=== PATIENT | male | born 1955 ===

== ENCOUNTER 2018-04-12 21:23 | Inpatient (IN) | payer MEDICAID ==
--- NOTE | 2018-04-12 21:53 | C.PDOC ---
History Of Present Illness 62 year old male with PMHx of DM presents to the ED c/o left sided weakness that started yesterday night. Patient reports last night he noticed left sided weakness difficulty with his gait and decreased sensation to his left upper and lower extremities. Patient thought his symptoms will eventually get better so he did not seek immediate medial attention. This morning after waking up patient almost fell out of bed withy persistent left sided weakness. Patient did not seek medical attention until 1 hour [employer] when his son got home. Patient denies headache, injury, fall, trauma, visual changes, slurred speech, no prior Hx of CVA. Time Seen by Provider: 04/12/18 21:48 Chief Complaint (Nursing): Weakness/Neurological Deficit History Per: Patient History/Exam Limitations: no limitations Onset/Duration Of Symptoms: Days Current Symptoms Are (Timing): Still Present Number Of Syncopal Episodes: 1 Associated Symptoms Preceding Syncopal Episode: No Predromal Symptoms (Sudden Onset) Seizure Or Post-ictal Symptoms: None Fall Associated With With Symptoms: No Recent travel outside of the [place]: No Additional History Per: Patient - Symptoms Of CVA Character Of Deficits: Left: Weakness, Arm: Weakness Recent Aspirin Use: No Current Coumadin Use?: No Recent Head Trauma: No Past Medical History Reviewed: Historical Data, Nursing Documentation, Vital Signs Vital Signs: Last Vital Signs Temp 98.1 F 04/13/18 01:46 Pulse 68 04/13/18 01:46 Resp 16 04/13/18 01:46 BP 131/54 L 04/13/18 01:46 Pulse Ox 96 04/13/18 01:46 - Medical History PMH: Diabetes, Graves' Disease Surgical History: No Surg Hx Family History: States: Unknown Family Hx - Social History Hx Alcohol Use: No Hx Substance Use: No - Immunization History Hx Tetanus Toxoid Vaccination: No Hx Influenza Vaccination: No Hx Pneumococcal Vaccination: No Review Of Systems Constitutional: Negative for: Fever, Chills Cardiovascular: Negative for: Chest Pain Respiratory: Negative for: Shortness of Breath Gastrointestinal: Negative for: Abdominal Pain Skin: Negative for: Rash Neurological: Positive for: Weakness, Numbness. Negative for: Headache, Dizziness Physical Exam - Physical Exam Appears: Non-toxic, No Acute Distress Skin: Normal Color, Warm, Dry Head: Atraumatic, Normacephalic Eye(s): bilateral: Normal Inspection Nose: No Discharge Oral Mucosa: Moist Neck: Normal ROM, Supple Chest: Symmetrical Cardiovascular: Rhythm Regular, No Murmur Respiratory: Normal Breath Sounds, No Rales, No Rhonchi, No Wheezing Gastrointestinal/Abdominal: Soft, No Tenderness, No Guarding, No Rebound Extremity: No Tenderness, Capillary Refill (< 2 seconds), No Swelling, Other ( left upper and lower extremities wekaness) Pulses: Left Dorsalis Pedis: Normal, Right Dorsalis Pedis: Normal Neurological/Psych: Oriented x3, Normal Speech, Normal Cranial Nerves, Normal Motor (4/5 strength left upper extremity, 4/5 left lower extremity), No Normal Sensation (decreased sesnation left upper and lower extremities), Other ( pronator drift left upper extremity.) Gait: Other (ataxic, tetters on the left sided) ED Course And Treatment - Laboratory Results Result Diagrams: 04/12/18 22:10 04/12/18 22:10 ECG: Interpreted By Me, Viewed By Me ECG Rhythm: Sinus Rhythm ECG Interpretation: Normal Interpretation Of ECG: No ectopy, so ST/T wave abnormalities Rate From EC (BPM) O2 Sat by Pulse Oximetry: 98 (ON RA) Pulse Ox Interpretation: Normal - CT Scan/US CT head Other Rad Studies (CT/US): Read By Radiologist, Radiology Report Reviewed CT/US Interpretation: FINDINGS: Brain: Mild to moderate chronic white matter disease, likely microangiopathic. Age-indeterminate. infarct within the right miles radiata, measures approximately 10 mm. No hemorrhage. Ventricles: No hydrocephalus. Caval septum pellucidum, normal variant. Bones/joints: Unremarkable. No acute fracture. Soft tissues: Unremarkable. Sinuses: Unremarkable as visualized. No acute sinusitis. Mastoid air cells: Unremarkable as visualized. No mastoid effusion. IMPRESSION: Age- indeterminate infarct within the right miles radiata, measures approximately 10 mm. No major vascular catheter infarct, hemorrhage or mass effect. Clinical correlation and followup is recommended as clinically warranted. Thank you for allowing us to participate in the care of your patient. Dictated and Authenticated by: Angie Arizmendi MD. 04/12/2018 11:01 PM Eastern Time ([place] & [place]) NIHSS Stroke Scale 2 - Date/Time Evaluation Performed Date Performed: 04/12/18 When Was NIHSS Performed: 24 hours post onset S/S - How Severe is the Stroke Level of Consciousness: 0=Alert LOC to Questions: 0=Both comments correct LOC to commands: 0=Obeys both correctly Best Gaze: 0=Normal Visual: 0=No visual loss Facial: 0=Normal Motor Arm - Left: 1=Drift noted before 10 sec Motor Arm - Right: 0=No drift Motor Leg - Left: 1=Drift before 5 sec Motor Leg - Right: 0=No drift Limb Ataxia: 2=Present both Sensory: 1=Mild to moderate loss Best Language: 0=No aphasia Dysarthia: 0=Normal articulation Extinction & Inattention (Neglect): 0=Normal, no object Score: 5 Medical Decision Making Medical Decision Making: Impression: left sided weakness Plan: * CT head * Labs * EKG * CXR * IV fluids 22:30 - Spoke with Dr. Alfaro (neurologist [facility]) who recommends that if CT shows no bleed give patient aspirin and clavix and admit to telemetry Disposition - Disposition Disposition: HOSPITALIZED Disposition Time: 05:29 Condition: GOOD - Clinical Impression Clinical Impression: Stroke determined by clinical assessment - Scribe Statement The provider has reviewed the documentation as recorded by the Scribe Dejon Rios All medical record entries made by the Scribe were at my direction and personally dictated by me. I have reviewed the chart and agree that the record accurately reflects my personal performance of the history, physical exam, medical decision making, and the department course for this patient. I have also personally directed, reviewed, and agree with the discharge instructions and disposition.
--- NOTE | 2018-04-12 21:55 | C.PDOC ---
Time Seen by Provider: 04/12/18 21:48 Chief Complaint (Nursing): Weakness/Neurological Deficit Past Medical History Vital Signs: Last Vital Signs Temp 98.5 F 04/12/18 21:42 Pulse 84 04/12/18 21:42 Resp 28 H 04/12/18 21:42 BP 163/90 H 04/12/18 21:42 Pulse Ox 98 04/12/18 21:42 - Medical History PMH: Graves' Disease - Social History Hx Alcohol Use: No Hx Substance Use: No - Immunization History Hx Tetanus Toxoid Vaccination: No Hx Influenza Vaccination: No Hx Pneumococcal Vaccination: No ED Course And Treatment O2 Sat by Pulse Oximetry: 98 Disposition - Disposition Forms: [employer] (E[place]ian)
[2018-04-12 22:16] LABS: BASO # 0.1 K/uL (0.0-0.2); BASO % 0.8 % (0.0-2.0); EOS # 0.3 K/uL (0.0-0.7); HEMOGLOBIN 13.2 g/dL (12.0-18.0); LYMPH # 4.3 K/uL (1.0-4.3); MEAN CELL VOLUME 83.8 fL (80.0-94.0); MEAN CORPUSCULAR HEMOGLOBIN 27.8 pg (27.0-31.0); MEAN CORPUSCULAR HGB CONC 33.2 g/dL (33.0-37.0); MEAN PLATELET VOLUME 8.3 fL (7.2-11.7); MONO # 1.2 K/uL (0.0-0.8); MONO % 8.4 % (0.0-10.0); NEUT % 57.8 % (50.0-75.0); RBC 4.74 Mil/uL (4.40-5.90); RED CELL DISTRIBUTION WIDTH 14.2 % (11.5-14.5); WHITE BLOOD COUNT 13.9 K/uL (4.8-10.8)
[2018-04-12 22:24] LABS: INR 1.1; PROTHROMBIN TIME 11.9 SECONDS (9.7-12.2)
[2018-04-12] MEDS ORDERED: Sodium Chloride 0.9% 1,000 ML ONE (22:27)
[2018-04-12] MEDS: Sodium Chloride 0.9% 1,000 ML IV SCH (22:28)
[2018-04-12 22:29] LABS: ALB/GLOB RATIO 1.1 (1.0-2.1); ALBUMIN 3.8 g/dL (3.5-5.0); ALT/SGPT 26 U/L (21-72); AST/SGOT 17 U/L (17-59); BLOOD UREA NITROGEN 13 mg/dL (9-20); CALCIUM 9.6 mg/dl (8.6-10.4); GFR AFRICAN-AMERICAN > 60; GFR NON-AFRICAN AMERICAN > 60; HDL CHOLESTEROL 25 mg/dL (30-70)
[2018-04-12 22:40] LABS: LDL CHOLESTEROL 150 mg/dL (0-129)
[2018-04-12] MEDS ORDERED: Iodixanol 320 MG/ML 100 ML BOTTLE IV ONE (22:43)
--- NOTE | 2018-04-12 23:38 | CP.PCM.HP ---
<Elena Mckinney - Last Filed: 04/13/18 02:46> History of Present Illness - History of Present Illness History of Present Illness: H&P: 62 year old male with past medical history of uncontrolled diabetes, HLD presented to hospital for left sided weakness. Left sided weakness began 2 nights ago (04/11/18) and worsened the next day. Weakness began in upper extremity and then gradually went to lower extremity. Patient denied having any changes in sensation in UE or LE B/L. Patient was ambulating without difficulty but does admit to having a difficult time getting in and out of chairs since yesterday. Patient denies having any facial weakness or numbness and denied having any changes in speech or swallowing. patient denied having any CARDOSO, vision or hearing changes. Denies having any recent illness or recent travels. denies having any similar symptoms in past. Pmhx: stated above Sx:denies Social: smokes 1/2 ppd x 40 years, denies ETOH or drug use Meds: Metformin 1000 mg po qd, Aspirin 81 mg po qd PMD: none NKDA Present on Admission - Present on Admission Any Indicators Present on Admission: No Review of Systems - Constitutional Constitutional: absent: Chills, Fever - EENT Eyes: absent: Blurred Vision, Change in Vision Nose/Mouth/Throat: absent: Nasal Congestion, Nasal Discharge - Cardiovascular Cardiovascular: absent: Chest Pain, Dyspnea, Dyspnea on Exertion, Edema - Respiratory Respiratory: absent: Cough, Dyspnea, Dyspnea on Exertion, Wheezing - Gastrointestinal Gastrointestinal: absent: Abdominal Pain, Constipation, Diarrhea, Nausea, Vomiting - Genitourinary Genitourinary: absent: Dysuria, Urinary Frequency - Integumentary Integumentary: absent: Acne, Lesions, Rash, Wounds - Neurological Neurological: Weakness. absent: Abnormal Gait, Abnormal Hearing, Disequilibrium , Dizziness, Focal Weakness, Frequent Falls, Headaches, Loss of Vision, Paresthesias, Sensory Deficit, Syncope, Tingling, Tremor, Vertigo - Psychiatric Psychiatric: absent: Anxiety, Depression Past Patient History - Past Social History Smoking Status: Current Some Days Smoker Chewing Tobacco Use: No Cigar Use: No Alcohol: None Drugs: Denies Home Situation {Lives}: With Family - PSYCHIATRIC Hx Substance Use: No - SURGICAL HISTORY Hx Surgeries: No - ANESTHESIA Hx Anesthesia: No Meds Allergies/Adverse Reactions: Allergies Allergy/AdvReac Type Severity Reaction Status Date / Time No Known Allergies Allergy Unverified 04/12/18 21:42 Physical Exam - Constitutional Appears: Non-toxic, No Acute Distress - Head Exam Head Exam: ATRAUMATIC, NORMOCEPHALIC - Eye Exam Eye Exam: EOMI, Normal appearance, PERRL. absent: Nystagmus Pupil Exam: NORMAL ACCOMODATION, PERRL - ENT Exam ENT Exam: Mucous Membranes Moist, Normal Exam - Neck Exam Neck exam: Positive for: Normal Inspection - Respiratory Exam Respiratory Exam: Clear to Auscultation Bilateral. absent: Accessory Muscle Use , Rales, Rhonchi, Wheezes, Respiratory Distress - Cardiovascular Exam Cardiovascular Exam: REGULAR RHYTHM, +S1, +S2. absent: Diastolic murmur, Gallop , Rubs, Systolic Murmur - GI/Abdominal Exam GI & Abdominal Exam: Normal Bowel Sounds, Soft. absent: Distended, Firm, Guarding, Rigid, Tenderness - Extremities Exam Extremities exam: Negative for: pedal edema, tenderness - Neurological Exam Neurological exam: Alert, Motor Sensory Deficit, Oriented x3, Reflexes Normal Additional comments: L UE 4/5 strength. R UE 5/5 strength L LE and R LE strength 5/5 mild drift in L UE mild difficulty with finger to nose test on left side. normal on right side normal heel to chin B/L negative Babinski mild left sided facial weakness noted on left side with eyebrow raising and smiling. rest of cranial nerves intact - Psychiatric Exam Psychiatric exam: Normal Affect, Normal Mood Results - Vital Signs Recent Vital Signs: Last Vital Signs Temp 98.5 F 04/12/18 21:42 Pulse 89 04/12/18 22:15 Resp 20 04/12/18 22:15 BP 150/87 04/12/18 22:15 Pulse Ox 98 04/12/18 23:03 - Labs Result Diagrams: 04/12/18 22:10 04/12/18 22:10 Labs: Laboratory Results - last 24 hr 04/12/18 04/12/18 04/12/18 21:46 22:10 22:10 WBC 13.9 H RBC 4.74 Hgb 13.2 Hct 39.7 MCV 83.8 MCH 27.8 MCHC 33.2 RDW 14.2 Plt Count 434 H MPV 8.3 Neut % (Auto) 57.8 Lymph % (Auto) 31.0 Branch % (Auto) 8.4 Eos % (Auto) 2.0 Baso % (Auto) 0.8 Neut # (Auto) 8.0 H Lymph # (Auto) 4.3 Branch # (Auto) 1.2 H Eos # (Auto) 0.3 Baso # (Auto) 0.1 PT 11.9 INR 1.1 APTT 34 Sodium Potassium Chloride Carbon Dioxide Anion Gap BUN Creatinine Est GFR ( Amer) Est GFR (Non-Af Amer) POC Glucose (mg/dL) 336 H Random Glucose Hemoglobin A1c Calcium Total Bilirubin AST ALT Alkaline Phosphatase Troponin I Total Protein Albumin Globulin Albumin/Globulin Ratio Triglycerides Cholesterol LDL Cholesterol Direct HDL Cholesterol Blood Type Antibody Screen 04/12/18 04/12/18 04/12/18 22:10 22:10 22:10 WBC RBC Hgb Hct MCV MCH MCHC RDW Plt Count MPV Neut % (Auto) Lymph % (Auto) Branch % (Auto) Eos % (Auto) Baso % (Auto) Neut # (Auto) Lymph # (Auto) Branch # (Auto) Eos # (Auto) Baso # (Auto) PT INR APTT Sodium 136 Potassium 4.2 Chloride 98 Carbon Dioxide 26 Anion Gap 16 BUN 13 Creatinine 0.7 L Est GFR ( Amer) > 60 Est GFR (Non-Af Amer) > 60 POC Glucose (mg/dL) Random Glucose 377 H Hemoglobin A1c 12.0 H Calcium 9.6 Total Bilirubin 0.3 AST 17 ALT 26 Alkaline Phosphatase 89 Troponin I < 0.0120 Total Protein 7.1 Albumin 3.8 Globulin 3.3 Albumin/Globulin Ratio 1.1 Triglycerides 132 Cholesterol 194 LDL Cholesterol Direct 150 H HDL Cholesterol 25 L Blood Type O POSITIVE Antibody Screen Negative Assessment & Plan - Assessment and Plan (Free Text) Assessment: 62 year old male with past medical history of uncontrolled diabetes, HLD is admitted for possible CVA. CT scan of head done on admission showed infarct within right miles radiata age indeterminate. CVA - ED physician spoke with neurologist, Dr. Alfaro who recommended giving pt Aspirin 325mg po and Plavix - Neurologist, Dr. Alfaro consulted - will continue Aspirin and Plavix qd. - Will get MRI/ MRA of head and neck - continue NS 100 cc - Patient passed bedside swallow eval in ED. Will also get official swallow eval. NPO except meds until pass official eval - PT/OT - Will check echo DM - Hgb A1c done on admission was 12.0 - Accuchecks ACHS - ISS - hypoglycemix protocol - Will hold home medication metformin HLD - Lipid panel done in ED showed TG 132, Chold 194 LDL 150 HDL 25 - ASCVD score fo 35.2% risk of cardiovascular event - Will start pt on Crestor 20 mg HS Prophylaxis - SCDs - Lovenox - Pepcid BID Case discussed with attending, Dr. Meza - Date & Time Date: 04/13/18 Time: 02:54 <Carlos Meza - Last Filed: 04/13/18 08:05> Results - Vital Signs Recent Vital Signs: Last Vital Signs Temp 98.1 F 04/13/18 01:46 Pulse 88 04/13/18 04:00 Resp 16 04/13/18 01:46 BP 131/54 L 04/13/18 01:46 Pulse Ox 98 04/13/18 05:30 - Labs Result Diagrams: 04/13/18 06:50 04/13/18 06:50 Labs: Laboratory Results - last 24 hr 04/12/18 04/12/18 04/12/18 21:46 22:10 22:10 WBC 13.9 H RBC 4.74 Hgb 13.2 Hct 39.7 MCV 83.8 MCH 27.8 MCHC 33.2 RDW 14.2 Plt Count 434 H MPV 8.3 Neut % (Auto) 57.8 Lymph % (Auto) 31.0 Branch % (Auto) 8.4 Eos % (Auto) 2.0 Baso % (Auto) 0.8 Neut # (Auto) 8.0 H Lymph # (Auto) 4.3 Branch # (Auto) 1.2 H Eos # (Auto) 0.3 Baso # (Auto) 0.1 PT 11.9 INR 1.1 APTT 34 Sodium Potassium Chloride Carbon Dioxide Anion Gap BUN Creatinine Est GFR ( Amer) Est GFR (Non-Af Amer) POC Glucose (mg/dL) 336 H Random Glucose Hemoglobin A1c Calcium Phosphorus Magnesium Total Bilirubin AST ALT Alkaline Phosphatase Troponin I Total Protein Albumin Globulin Albumin/Globulin Ratio Triglycerides Cholesterol LDL Cholesterol Direct HDL Cholesterol Blood Type Antibody Screen 04/12/18 04/12/18 04/12/18 22:10 22:10 22:10 WBC RBC Hgb Hct MCV MCH MCHC RDW Plt Count MPV Neut % (Auto) Lymph % (Auto) Branch % (Auto) Eos % (Auto) Baso % (Auto) Neut # (Auto) Lymph # (Auto) Branch # (Auto) Eos # (Auto) Baso # (Auto) PT INR APTT Sodium 136 Potassium 4.2 Chloride 98 Carbon Dioxide 26 Anion Gap 16 BUN 13 Creatinine 0.7 L Est GFR ( Amer) > 60 Est GFR (Non-Af Amer) > 60 POC Glucose (mg/dL) Random Glucose 377 H Hemoglobin A1c 12.0 H Calcium 9.6 Phosphorus Magnesium Total Bilirubin 0.3 AST 17 ALT 26 Alkaline Phosphatase 89 Troponin I < 0.0120 Total Protein 7.1 Albumin 3.8 Globulin 3.3 Albumin/Globulin Ratio 1.1 Triglycerides 132 Cholesterol 194 LDL Cholesterol Direct 150 H HDL Cholesterol 25 L Blood Type O POSITIVE Antibody Screen Negative 04/13/18 04/13/18 06:50 06:50 WBC 14.3 H RBC 4.74 Hgb 13.1 Hct 39.8 MCV 84.1 MCH 27.6 MCHC 32.8 L RDW 14.3 Plt Count 410 H MPV 8.2 Neut % (Auto) 57.4 Lymph % (Auto) 29.4 Branch % (Auto) 9.9 Eos % (Auto) 2.7 Baso % (Auto) 0.6 Neut # (Auto) 8.2 H Lymph # (Auto) 4.2 Branch # (Auto) 1.4 H Eos # (Auto) 0.4 Baso # (Auto) 0.1 PT INR APTT Sodium 142 Potassium 3.9 Chloride 105 Carbon Dioxide 26 Anion Gap 15 BUN 10 Creatinine 0.6 L Est GFR ( Amer) > 60 Est GFR (Non-Af Amer) > 60 POC Glucose (mg/dL) Random Glucose 208 H Hemoglobin A1c Calcium 8.7 Phosphorus 3.7 Magnesium 1.7 Total Bilirubin 0.4 AST 15 L ALT 13 L D Alkaline Phosphatase 88 Troponin I Total Protein 6.5 Albumin 3.4 L Globulin 3.1 Albumin/Globulin Ratio 1.1 Triglycerides Cholesterol LDL Cholesterol Direct HDL Cholesterol Blood Type Antibody Screen Attending/Attestation - Attestation I have personally seen and examined this patient.: Yes I have fully participated in the care of the patient.: Yes I have reviewed all pertinent clinical information: Yes Notes (Text): 05/15/18 08:02 New right internal capsule, miles radiata lacunar infarct with some left sided weakness Uncontrolled dm with hgba1c 12 tobacco abuse No h/o htn as per patient, bp slight high likely from recent stroke. Plan Echo Neuro check Plavix added as patient was already on asa Improved dm control started glucotrol xl with monitor accucheck add insulin if high counseled about smoking PT/OT Neuro f/u Crestor GI/dvt prophyalxis See orders for detail.
[2018-04-13 06:58] LABS: BASO # 0.1 K/uL (0.0-0.2); BASO % 0.6 % (0.0-2.0); EOS # 0.4 K/uL (0.0-0.7); EOS % 2.7 % (0.0-4.0); HEMOGLOBIN 13.1 g/dL (12.0-18.0); LYMPH # 4.2 K/uL (1.0-4.3); LYMPH % 29.4 % (20.0-40.0); MEAN CELL VOLUME 84.1 fL (80.0-94.0); MEAN CORPUSCULAR HEMOGLOBIN 27.6 pg (27.0-31.0); MEAN CORPUSCULAR HGB CONC 32.8 g/dL (33.0-37.0); MEAN PLATELET VOLUME 8.2 fL (7.2-11.7); MONO # 1.4 K/uL (0.0-0.8); MONO % 9.9 % (0.0-10.0); NEUT # 8.2 K/uL (1.8-7.0); NEUT % 57.4 % (50.0-75.0); RBC 4.74 Mil/uL (4.40-5.90); RED CELL DISTRIBUTION WIDTH 14.3 % (11.5-14.5); WHITE BLOOD COUNT 14.3 K/uL (4.8-10.8)
[2018-04-13 07:12] LABS: ALB/GLOB RATIO 1.1 (1.0-2.1); ALBUMIN 3.4 g/dL (3.5-5.0); ALT/SGPT 13 U/L (21-72); AST/SGOT 15 U/L (17-59); BLOOD UREA NITROGEN 10 mg/dL (9-20); CALCIUM 8.7 mg/dl (8.6-10.4); GFR AFRICAN-AMERICAN > 60; GFR NON-AFRICAN AMERICAN > 60
--- NOTE | 2018-04-13 08:24 | CT ---
PROCEDURE: CT HEAD WITHOUT CONTRAST. HISTORY: Code Stroke COMPARISON: None available. TECHNIQUE: Axial computed tomography images were obtained through the head/brain without intravenous contrast. Radiation dose: Total exam DLP = 844 mGy-cm. This CT exam was performed using one or more of the following dose reduction techniques: Automated exposure control, adjustment of the mA and/or kV according to patient size, and/or use of iterative reconstruction technique. FINDINGS: HEMORRHAGE: No intracranial hemorrhage. BRAIN: No mass effect or edema. Scattered focal lucencies in the subcortical and periventricular white matter suggestive for chronic microvascular ischemic change. . Age-indeterminate infarct within the right miles radiata, measuring up to 10 millimeters. Thickening VENTRICLES: Unremarkable. No hydrocephalus. Cavum septum pellucidum, normal variant. CALVARIUM: Unremarkable. PARANASAL SINUSES: Unremarkable as visualized. No significant inflammatory changes. MASTOID AIR CELLS: Unremarkable as visualized. No inflammatory changes. OTHER FINDINGS: None. IMPRESSION: Age-indeterminate infarct within the right miles radiata, measuring up to 10 millimeters. Correlation with diffusion-weighted MRI would be helpful to better evaluate for acute ischemic change if clinically indicated. Chronic microvascular ischemic changes. These findings were preliminarily reported at 11:01 p.m. on 04/12/[address] Angie Pineda from [facility].
[2018-04-13] MEDS: (Novolin R) Insulin Human Regular 100 units/ml vial SC SCH ×4 (08:31→22:15)
[2018-04-13] MEDS: Sodium Chloride 0.9% 1,000 ML IV SCH ×3 (08:32→19:20)
--- NOTE | 2018-04-13 09:35 | RAD ---
Chest x-ray single frontal view History: Code stroke. Comparison: None available. Findings: Mild venous congestion. Mild patchy increased markings at the lung bases. Heart size within normal limits. Tortuous aorta. Degenerative changes in the spine and shoulders. Impression: Mild venous congestion. Mild patchy increased markings at the lung bases. Heart size within normal limits. Tortuous aorta.
--- NOTE | 2018-04-13 10:25 | CT ---
PROCEDURE: CT Angiography of the neck and brain dated 04/12/2018. HISTORY: CVA COMPARISON: Comparison made with concurrent CT scan brain. TECHNIQUE: Contiguous helical/transaxial images of the neck were obtained from the level of the skull-base to the superior mediastinum in the arteriographic phase of enhancement. Coronal and sagittal reformats or also generated. IV contrast dose: 100 cc Visipaque 320 Radiation Dose - DLP: 529.08 mGy-cm This CT exam was performed using one or more of the following dose reduction techniques: Automated exposure control, adjustment of the mA and/or kV according to patient size, and/or use of iterative reconstruction technique. . FINDINGS: Visualized aortic arch is widely patent with no significant atherosclerotic disease with only a few very tiny calcified plaque changes seen along left inferolateral margin of the transverse portion of the aortic arch. Origins of the great vessels widely patent. The common carotid arteries, carotid bifurcations and internal carotid arteries are also patent. The distal internal carotid arteries including the petrous cavernous and supraclinoid segments also patent. No significant atherosclerotic plaque along distal internal carotid arteries. The vertebral arteries are also patent throughout right-sided which is slightly larger in caliber/more dominant than the left side. Basilar artery also patent. The distal branches of the anterior middle and posterior cerebral arteries are patent and symmetric. No evidence of large aneurysm nor vascular malformation Minor mucosal thickening seen within the right maxillary antrum and minimal mucosal thickening left maxillary antrum. There may be some minor air trapping seen in the lung apices oval otherwise clear. IMPRESSION: No evidence of occlusion or significant stenosis. No evidence of large aneurysm nor vascular malformation.
--- NOTE | 2018-04-13 10:46 | MRI ---
PROCEDURE: Magnetic Resonance Angiography Brain HISTORY: CVA COMPARISON: CT neck and head 04/12/2018. TECHNIQUE: 3D time of flight MR angiography of the intracranial arteries was performed. Rotating maximum intensity projection images were generated. FINDINGS: Quality of the CT angiogram performed 04/12/2018 is superior to that of the current MR angiogram due to motion artifacts currently and lack of intravenous gadolinium. INTERNAL CAROTID ARTERIES: Atherosclerotic changes are seen at the bilateral cavernous ICA segments causing mild bilateral stenoses. Artifacts from skullbase obscure proximal skullbase segments. The petrous, and supraclinoid segments are bilaterally patient. ANTERIOR CEREBRAL ARTERIES: Unremarkable. A1 and A2 segments are widely patent. Smaller distal branches unremarkable, as visualized. MIDDLE CEREBRAL ARTERIES: Unremarkable. M1 and M2 segments are widely patent. Perisylvian branches are limited in evaluation but appear patent. POSTERIOR CIRCULATION: Basilar Artery: The basilar artery is likely patent and is affected by motion and very limited evaluation overall. Distal Vertebral Arteries: Unremarkable. Posterior Cerebral Arteries: Unremarkable. Posterior Inferior Cerebellar Arteries: Unremarkable. ANEURYSM/ VASCULAR MALFORMATIONS: None. OTHER FINDINGS: None. IMPRESSION: Some limited brain MR angiogram due to motion artifacts. CT angiogram of the brain performed 04/12/2018 is a superior study, particularly at the bilateral internal carotid arteries and the distal bilateral MCA branches. No high-grade stenosis appreciable overall nevertheless.
--- NOTE | 2018-04-13 10:57 | MRI ---
PROCEDURE: MRI BRAIN WITHOUT CONTRAST HISTORY: CVA COMPARISON: Unenhanced head CT 04/12/2018. TECHNIQUE: Multiplanar, multisequence MR images of the brain were obtained without intravenous contrast enhancement. FINDINGS: HEMORRHAGE: None DWI: No evidence of an acute or early subacute infarction. BRAIN PARENCHYMA: There is an ovoid relatively well-circumscribed area of increased long TR signal corresponding to lucency on CT of 04/12/2018 at the right periventricular white matter superiorly which does not represent an acute or subacute infarct at this may represent a chronic lacune unit is 1 of the few of not only white matter abnormality seen in the CT examination. A small chronic lacune is seen the left frontal periventricular white matter. Precautionary follow-up MRI with contrast is recommended if there is no contraindication to potential mass here though this is not favored. Otherwise, minimal diffuse cerebral atrophy and moderate chronic microangiopathy findings are reiterated including the preet. There is no mass effect and the midline brain anatomy remains unremarkable grossly. There is no suspicious extra-axial collection appreciated. VENTRICLES: Unremarkable. No hydrocephalus. CRANIUM: Unremarkable. ORBITS: Grossly unremarkable. PARANASAL SINUSES/MASTOIDS: Clear VASCULAR SYSTEM: Skull base flow voids intact. OTHER FINDINGS: None. IMPRESSION: 1. No acute or subacute brain infarction, mass effect or definite intracranial hemorrhage. 2. Partially well-circumscribed right periventricular white-matter ovoid signal abnormality corresponds to a solitary lucency at the same distribution in the CT exam 04/12/2018 although a moderate chronic microangiopathy is otherwise appreciated throughout the cerebral white matter. Given its ovoid shape and differential density seen in the head CT 04/12/2018, follow-up contrast MRI may be helpful further characterization (if there is no contraindication) though this may represent a chronic lacunar infarct. 3. Age-appropriate age related neuro degenerative changes reiterated.
--- NOTE | 2018-04-13 11:00 | MRI ---
PROCEDURE: MR Angiography of the neck without contrast HISTORY: cva COMPARISON: None available. TECHNIQUE: 3D [id number] angiography of the neck was performed. Rotating maximum intensity projection images of the cervical carotid and vertebral arteries were generated. The origins of the common carotid arteries were not visualized, which is a limitation inherent to the non-contrast time of flight technique. FINDINGS: Examination inferior to CT angiogram head at and neck 04/12/2018 due to motion artifacts and lack of intravenous gadolinium. RIGHT CAROTID ARTERIES: Common Carotid Artery: Patent. Carotid Bifurcation: Patent. Internal Carotid Artery:Patent without gross stenosis. External Carotid Artery (proximal branches): Patent. LEFT CAROTID ARTERIES: Common Carotid Artery: Patent. Carotid Bifurcation: Patent. Internal Carotid Artery:Patent without gross stenosis. External Carotid Artery (proximal branches): Patent. VERTEBRAL ARTERIES: Right Vertebral Artery: Patent. Left Vertebral Artery: Patent. OTHER FINDINGS: None. IMPRESSION: No gross stenosis appreciate the bilateral common or internal carotid arteries as well as the bilateral vertebral arteries. The study is significantly are affected by extensive motion artifacts. CT angiogram of the head and neck 04/12/2018 is more accurate.
[2018-04-13] MEDS: Pantoprazole 40 mg EC Tab PO SCH (11:03)
--- NOTE | 2018-04-13 11:40 | CP.PCM.PN ---
Subjective - Date & Time of Evaluation Date of Evaluation: 04/13/18 Time of Evaluation: 11:37 - Subjective Subjective: Code Star was called Patient came back from MRI and was placed in the bed. Patient said he walked to the chair and sat down and then wanted to go back to bed. Patient fell en route to bed. Patient denies hitting his head, denies headache, nausea, vomiting, more weakness, any numbness. Patient was seen and examined at bedside. Patient is in bed with both guard rails up. at time of evaluation. Patient was able to speak in coherent sentences , patient is able to move spontaneously and on command. no focal neurological deficits compared to previous noted physical exams Objective - Vital Signs/Intake and Output Vital Signs (last 24 hours): Temp Pulse Resp BP Pulse Ox 98.2 F 72 18 128/73 99 04/13/18 02:40 04/13/18 06:00 04/13/18 06:00 04/13/18 06:00 04/13/18 06:00 Intake and Output: 04/13/18 04/13/18 06:59 18:59 Intake Total 500 Output Total 450 Balance 50 - Medications Medications: Current Medications Aspirin (Aspirin Chewable) 81 mg PO DAILY [facility] Last Admin: 04/13/18 11:03 Dose: 81 mg Clopidogrel Bisulfate (Plavix) 75 mg PO DAILY [facility] Last Admin: 04/13/18 11:04 Dose: 75 mg Glipizide (Glucotrol) 5 mg PO ACB [facility] Last Admin: 04/13/18 08:31 Dose: 5 mg Sodium Chloride (Sodium Chloride 0.9%) 1,000 mls @ 100 mls/hr IV .Q10H [facility] Last Admin: 04/13/18 08:32 Dose: Not Given Insulin Human Regular (Novolin R) 0 unit SC ACHS [facility] PRN Reason: Protocol Last Admin: 04/13/18 11:31 Dose: 2 unit Lisinopril (Zestril) 2.5 mg PO DAILY [facility] Pantoprazole Sodium (Protonix Ec Tab) 40 mg PO DAILY [facility] Last Admin: 04/13/18 11:03 Dose: 40 mg Rosuvastatin Calcium (Crestor) 20 mg PO HS [facility] - Labs Labs: 04/13/18 06:50 04/13/18 06:50 PT 11.9 SECONDS (9.7-12.2) 04/12/18 22:10 INR 1.1 04/12/18 22:10 APTT 34 SECONDS (21-34) 04/12/18 22:10 - Constitutional Appears: Non-toxic, No Acute Distress - Head Exam Head Exam: NORMAL INSPECTION, NORMOCEPHALIC - Eye Exam Eye Exam: EOMI, Normal appearance - ENT Exam ENT Exam: Mucous Membranes Moist, Normal Exam - Neck Exam Neck Exam: Normal Inspection - Respiratory Exam Respiratory Exam: Clear to Ausculation Bilateral, NORMAL BREATHING PATTERN. absent: Accessory Muscle Use - Cardiovascular Exam Cardiovascular Exam: REGULAR RHYTHM, +S1, +S2. absent: Bradycardia, Tachycardia - GI/Abdominal Exam GI & Abdominal Exam: Soft, Normal Bowel Sounds. absent: Tenderness, Organomegaly - Extremities Exam Extremities Exam: Full ROM, Normal Inspection. absent: Pedal Edema - Back Exam Back Exam: Full ROM, NORMAL INSPECTION. absent: CVA tenderness (L), CVA tenderness (R) - Neurological Exam Neurological Exam: Awake, CN II-XII Intact Neuro motor strength exam: Left Upper Extremity: 4, Right Upper Extremity: 5, Left Lower Extremity: 4, Right Lower Extremity: 5 - Psychiatric Exam Psychiatric exam: Normal Mood - Skin Skin Exam: Dry, Intact, Normal Color, Warm Assessment and Plan - Assessment and Plan (Free Text) Assessment: no need for ct head at this time. will consider if condition worsens. will notify attending.
--- NOTE | 2018-04-13 12:37 | CP.PCM.PN ---
<Sherry Field - Last Filed: 04/13/18 12:34> Subjective - Date & Time of Evaluation Date of Evaluation: 04/13/18 Time of Evaluation: 09:00 - Subjective Subjective: Medicine Note for Hospitalist Service- Dr. Rivas Mejía Patient was seen and examined at bedside. Patient reports he feels better today , regaining strength in his left upper and lower extremity. Denied fever, chills , headaches, loss of sensation, tingling in extremities, chest pain, shortness of breath, abdominal pain, n/v/d/c, or urinary symptoms. Objective - Vital Signs/Intake and Output Vital Signs (last 24 hours): Temp Pulse Resp BP Pulse Ox 98.2 F 72 18 128/73 99 04/13/18 02:40 04/13/18 06:00 04/13/18 06:00 04/13/18 06:00 04/13/18 06:00 Intake and Output: 04/13/18 04/13/18 06:59 18:59 Intake Total 500 Output Total 450 Balance 50 - Medications Medications: Current Medications Aspirin (Aspirin Chewable) 81 mg PO DAILY [facility] Last Admin: 04/13/18 11:03 Dose: 81 mg Clopidogrel Bisulfate (Plavix) 75 mg PO DAILY [facility] Last Admin: 04/13/18 11:04 Dose: 75 mg Glipizide (Glucotrol) 5 mg PO ACB [facility] Last Admin: 04/13/18 08:31 Dose: 5 mg Sodium Chloride (Sodium Chloride 0.9%) 1,000 mls @ 100 mls/hr IV .Q10H [facility] Last Admin: 04/13/18 08:32 Dose: Not Given Insulin Human Regular (Novolin R) 0 unit SC [facility] PRN Reason: Protocol Last Admin: 04/13/18 11:31 Dose: 2 unit Lisinopril (Zestril) 2.5 mg PO DAILY [facility] Last Admin: 04/13/18 11:45 Dose: 2.5 mg Pantoprazole Sodium (Protonix Ec Tab) 40 mg PO DAILY [facility] Last Admin: 04/13/18 11:03 Dose: 40 mg Rosuvastatin Calcium (Crestor) 20 mg PO HS [facility] - Labs Labs: 04/13/18 06:50 04/13/18 06:50 PT 11.9 SECONDS (9.7-12.2) 04/12/18 22:10 INR 1.1 04/12/18 22:10 APTT 34 SECONDS (21-34) 04/12/18 22:10 - Additional Findings Additional findings: - Constitutional Appears: Non-toxic, No Acute Distress - Head Exam Head Exam: ATRAUMATIC, NORMOCEPHALIC - Eye Exam Eye Exam: EOMI, Normal appearance, PERRL. absent: Nystagmus Pupil Exam: NORMAL ACCOMODATION, PERRL - ENT Exam ENT Exam: Mucous Membranes Moist, Normal Exam - Neck Exam Neck exam: Positive for: Normal Inspection - Respiratory Exam Respiratory Exam: Clear to Auscultation Bilateral. absent: Accessory Muscle Use , Rales, Rhonchi, Wheezes, Respiratory Distress - Cardiovascular Exam Cardiovascular Exam: REGULAR RHYTHM, +S1, +S2. absent: Diastolic murmur, Gallop , Rubs, Systolic Murmur - GI/Abdominal Exam GI & Abdominal Exam: Normal Bowel Sounds, Soft. absent: Distended, Firm, Guarding, Rigid, Tenderness - Extremities Exam Extremities exam: Negative for: pedal edema, tenderness - Neurological Exam Neurological exam: Alert, Motor Sensory Deficit, Oriented x3, Reflexes Normal Additional comments: L UE 5/5 strength. R UE 5/5 strength L LE and R LE strength 5/5 normal heel to chin B/L negative Babinski no facial weakness noted on exam, normal sensation normal gait rest of cranial nerves intact - Psychiatric Exam Psychiatric exam: Normal Affect, Normal Mood Assessment and Plan - Assessment and Plan (Free Text) Assessment: 62 year old male with past medical history of uncontrolled diabetes, HLD is admitted for possible CVA. CT scan of head done on admission showed infarct within right miles radiata age indeterminate. Further workup Head/ Neck CTA, Brain MRI, Head/ Neck MRA- negative for any acute pathology. Plan: CVA - Neurology consulted - Dr. Alfaro - ED physician spoke with neurologist, Dr. Alfaro who recommended giving pt Aspirin 325mg and Plavix Imaging: - Head CT: Age-indeterminate infarct within the right miles radiata, measuring up to 10 millimeters. Correlation with diffusion-weighted MRI would be helpful to better evaluate for acute ischemic change if clinically indicated. Chronic microvascular ischemic changes. - Head/ Neck CTA, Brain MRI, Head/ Neck MRA- negative for any acute pathology. Management: - Aspirin and Plavix daily - Crestor 20mg PO QHS - PT/OT Uncontrolled T2DM - Hgb A1c 12.0 - Accuchecks ACHS - ISS, hypoglycemix protocol, started Glipizide 5mg PO daily, (will resume Metformin on discharge), started lisinopril 2.5mg PO daily) - Will hold home medication metformin -due to contrast - will resume on discharge HLD - Lipid panel done in ED showed TG 132, Chold 194 LDL 150 HDL 25 - ASCVD score fo 35.2% risk of cardiovascular event - Started on Crestor 20 mg QHS Prophylaxis - GI: Protonix - DVT: SCDs, Lovenox - PT/ OT Disposition: Pending Neurology and PT recommendations, possible discharge tomorrow 04/14/18. DW Dr. Rivas Mejía, Sherry Field DO, PGY-1 <Rivas Mejía - Last Filed: 04/13/18 20:23> Objective - Vital Signs/Intake and Output Vital Signs (last 24 hours): Temp Pulse Resp BP Pulse Ox 97.8 F 81 16 126/69 100 04/13/18 16:00 04/13/18 17:54 04/13/18 16:00 04/13/18 16:00 04/13/18 16:00 Intake and Output: 04/13/18 04/14/18 18:59 06:59 Intake Total 1950 Output Total 1400 Balance 550 - Medications Medications: Current Medications Aspirin (Aspirin Chewable) 81 mg PO DAILY [facility] Last Admin: 04/13/18 11:03 Dose: 81 mg Clopidogrel Bisulfate (Plavix) 75 mg PO DAILY [facility] Last Admin: 04/13/18 11:04 Dose: 75 mg Enoxaparin Sodium (Lovenox) 40 mg SC DAILY [facility] Glipizide (Glucotrol) 5 mg PO ACB [facility] Last Admin: 04/13/18 08:31 Dose: 5 mg Sodium Chloride (Sodium Chloride 0.9%) 1,000 mls @ 100 mls/hr IV .Q10H [facility] Last Admin: 04/13/18 19:20 Dose: Not Given Insulin Human Regular (Novolin R) 0 unit SC [facility] PRN Reason: Protocol Last Admin: 04/13/18 16:47 Dose: 3 unit Lisinopril (Zestril) 2.5 mg PO DAILY [facility] Last Admin: 04/13/18 11:45 Dose: 2.5 mg Pantoprazole Sodium (Protonix Ec Tab) 40 mg PO DAILY [facility] Last Admin: 04/13/18 11:03 Dose: 40 mg Rosuvastatin Calcium (Crestor) 20 mg PO HS [facility] - Labs Labs: 04/13/18 06:50 04/13/18 06:50 PT 11.9 SECONDS (9.7-12.2) 04/12/18 22:10 INR 1.1 04/12/18 22:10 APTT 34 SECONDS (21-34) 04/12/18 22:10 Attending/Attestation - Attestation I have personally seen and examined this patient.: Yes I have fully participated in the care of the patient.: Yes I have reviewed all pertinent clinical information, including history, physical exam and plan: Yes Notes (Text): 04/13/18 20:19 Patient was seen and examined at 8:30 AM Exam, assessment and plan were gone over with the resident. There is a possibility of Acute vs Subacute infarct in the Right Internal Capsule area as seen on MRI. F/U with PT/OT. Rivas Mejía D.O.
--- NOTE | 2018-04-13 13:59 | CARD ---
APPROVED REPORT EXAM: Two-dimensional and M-mode echocardiogram with Doppler and color Doppler. Other Information Quality : GoodRhythm : INDICATION Asthma RISK FACTORS Hypertension Hyperlipidemia 2D DIMENSIONS IVSd0.7 (0.7-1.1cm)LVDd4.5 (3.9-5.9cm) PWd1.1 (0.7-1.1cm)LVDs3.0 (2.5-4.0cm) FS (%) 33.6 %LVEF (%)62.4 (>50%) M-Mode DIMENSIONS Left Atrium (MM)3.29 (2.5-4.0cm)Aortic Root2.99 (2.2-3.7cm) Aortic Cusp Exc.2.09 (1.5-2.0cm) Mitral Valve MV E Thnindzm48.3cm/sMV A Brgvuaqt77.3cm/sE/A ratio0.9 TDI E/Lateral E'0.0E/Medial E'0.0 Tricuspid Valve TR Peak Huhkgkug989zr/sTR Peak Gr.[id number] LEFT VENTRICLE The left ventricle is normal size. There is normal left ventricular wall thickness. The left ventricular function is normal. The left ventricular ejection fraction is within the normal range. There is normal LV segmental wall motion. Transmitral Doppler flow pattern is Grade I-abnormal relaxation pattern. RIGHT VENTRICLE The right ventricle is normal size. There is normal right ventricular wall thickness. The right ventricular systolic function is normal. ATRIA The left atrium size is normal. The right atrium size is normal. AORTIC VALVE The aortic valve is normal in structure. No aortic regurgitation is present. There is no aortic valvular stenosis. MITRAL VALVE The mitral valve is normal in structure. There is no mitral valve stenosis. There is no mitral valve regurgitation noted. TRICUSPID VALVE There is mild tricuspid regurgitation. GREAT VESSELS The aortic root is normal in size. PERICARDIAL EFFUSION There is no pericardial effusion. <Conclusion> The left ventricle is normal size. There is normal left ventricular wall thickness. The left ventricular function is normal. The left ventricular ejection fraction is within the normal range. There is normal LV segmental wall motion. Transmitral Doppler flow pattern is Grade I-abnormal relaxation pattern. There is mild tricuspid regurgitation.
--- NOTE | 2018-04-13 15:03 | CARD ---
APPROVED REPORT EKG Measurement Heart [id number] CO [id number] <Conclusion> Normal sinus rhythm Normal ECG
--- NOTE | 2018-04-13 15:20 | CP.PCM.CON ---
History of Present Illness - History of Present Illness History of Present Illness: 62 yr old right handed male, with pmh of DM, HLD and left sided weakness that started 2 days ago, and worsened on 04/12/18, present in left arm and leg. There is no complaint of dysarthria, aphasia, sensory loss, diplopia, visual disturbances, dysphagia, or headache. He has never had any spells like this in the past. MRI Brain has been done and shows an acute stroke in the right posterior limb of the internal capsule. After the MRI, he fell on the floor. However, his exam is unchanged. Pmhx: stated above Sx:denies Social: smokes 1/2 ppd x 40 years, denies ETOH or drug use Meds: Metformin 1000 mg po qd, Aspirin 81 mg po qd PMD: none NKDA on exam: AAOx3. pupils 3mm-2mm with light. EOMI. CN 2-12 normal. Motor: left arm is 3/5, with drift, and left leg is 5/5 HE can name and repeat well with no apraxia or aphasia. sensory: normal. Gait not tested +2 dtr ul and ll bl. Toes downgoing. No clonus. Past Patient History - Past Social History Smoking Status: Never Smoked - CARDIAC Hx Cardiac Disorders: No - PULMONARY Hx Respiratory Disorders: No - NEUROLOGICAL Hx Neurological Disorder: No - HEENT Hx HEENT Problems: No - RENAL Hx Chronic Kidney Disease: No - ENDOCRINE/METABOLIC Hx Diabetes Mellitus Type 2: Yes - HEMATOLOGICAL/ONCOLOGICAL Hx Blood Disorders: No - INTEGUMENTARY Hx Dermatological Problems: No - MUSCULOSKELETAL/RHEUMATOLOGICAL Hx Falls: No - GASTROINTESTINAL Hx Gastrointestinal Disorders: No - GENITOURINARY/GYNECOLOGICAL Hx Genitourinary Disorders: No - PSYCHIATRIC Hx Substance Use: No - SURGICAL HISTORY Hx Surgeries: No - ANESTHESIA Hx Anesthesia: No Meds Allergies/Adverse Reactions: Allergies Allergy/AdvReac Type Severity Reaction Status Date / Time No Known Allergies Allergy Unverified 04/12/18 21:42 - Medications Medications: Current Medications Aspirin (Aspirin Chewable) 81 mg PO DAILY [facility] Last Admin: 04/13/18 11:03 Dose: 81 mg Clopidogrel Bisulfate (Plavix) 75 mg PO DAILY [facility] Last Admin: 04/13/18 11:04 Dose: 75 mg Glipizide (Glucotrol) 5 mg PO ACB [facility] Last Admin: 04/13/18 08:31 Dose: 5 mg Sodium Chloride (Sodium Chloride 0.9%) 1,000 mls @ 100 mls/hr IV .Q10H [facility] Last Admin: 04/13/18 08:32 Dose: Not Given Insulin Human Regular (Novolin R) 0 unit SC ACHS [facility] PRN Reason: Protocol Last Admin: 04/13/18 11:31 Dose: 2 unit Lisinopril (Zestril) 2.5 mg PO DAILY [facility] Last Admin: 04/13/18 11:45 Dose: 2.5 mg Pantoprazole Sodium (Protonix Ec Tab) 40 mg PO DAILY [facility] Last Admin: 04/13/18 11:03 Dose: 40 mg Rosuvastatin Calcium (Crestor) 20 mg PO [facility] Results - Vital Signs Recent Vital Signs: Last Vital Signs Temp 98.2 F 04/13/18 02:40 Pulse 67 04/13/18 10:00 Resp 18 04/13/18 06:00 BP 128/73 04/13/18 06:00 Pulse Ox 99 04/13/18 06:00 - Labs Result Diagrams: 04/13/18 06:50 04/13/18 06:50 Labs: Laboratory Results - last 24 hr 04/12/18 04/12/18 04/12/18 21:46 22:10 22:10 WBC 13.9 H RBC 4.74 Hgb 13.2 Hct 39.7 MCV 83.8 MCH 27.8 MCHC 33.2 RDW 14.2 Plt Count 434 H MPV 8.3 Neut % (Auto) 57.8 Lymph % (Auto) 31.0 [place] % (Auto) 8.4 Eos % (Auto) 2.0 Baso % (Auto) 0.8 Neut # (Auto) 8.0 H Lymph # (Auto) 4.3 [place] # (Auto) 1.2 H Eos # (Auto) 0.3 Baso # (Auto) 0.1 PT 11.9 INR 1.1 APTT 34 Sodium Potassium Chloride Carbon Dioxide Anion Gap BUN Creatinine Est GFR ( Amer) Est GFR (Non-Af Amer) POC Glucose (mg/dL) 336 H Random Glucose Hemoglobin A1c Calcium Phosphorus Magnesium Total Bilirubin AST ALT Alkaline Phosphatase Troponin I Total Protein Albumin Globulin Albumin/Globulin Ratio Triglycerides Cholesterol LDL Cholesterol Direct HDL Cholesterol Blood Type Antibody Screen 04/12/18 04/12/18 04/12/18 22:10 22:10 22:10 WBC RBC Hgb Hct MCV MCH MCHC RDW Plt Count MPV Neut % (Auto) Lymph % (Auto) [place] % (Auto) Eos % (Auto) Baso % (Auto) Neut # (Auto) Lymph # (Auto) [place] # (Auto) Eos # (Auto) Baso # (Auto) PT INR APTT Sodium 136 Potassium 4.2 Chloride 98 Carbon Dioxide 26 Anion Gap 16 BUN 13 Creatinine 0.7 L Est GFR ( Amer) > 60 Est GFR (Non-Af Amer) > 60 POC Glucose (mg/dL) Random Glucose 377 H Hemoglobin A1c 12.0 H Calcium 9.6 Phosphorus Magnesium Total Bilirubin 0.3 AST 17 ALT 26 Alkaline Phosphatase 89 Troponin I < 0.0120 Total Protein 7.1 Albumin 3.8 Globulin 3.3 Albumin/Globulin Ratio 1.1 Triglycerides 132 Cholesterol 194 LDL Cholesterol Direct 150 H HDL Cholesterol 25 L Blood Type O POSITIVE Antibody Screen Negative 04/13/18 04/13/18 04/13/18 06:50 06:50 07:38 WBC 14.3 H RBC 4.74 Hgb 13.1 Hct 39.8 MCV 84.1 MCH 27.6 MCHC 32.8 L RDW 14.3 Plt Count 410 H MPV 8.2 Neut % (Auto) 57.4 Lymph % (Auto) 29.4 [place] % (Auto) 9.9 Eos % (Auto) 2.7 Baso % (Auto) 0.6 Neut # (Auto) 8.2 H Lymph # (Auto) 4.2 [place] # (Auto) 1.4 H Eos # (Auto) 0.4 Baso # (Auto) 0.1 PT INR APTT Sodium 142 Potassium 3.9 Chloride 105 Carbon Dioxide 26 Anion Gap 15 BUN 10 Creatinine 0.6 L Est GFR ( Amer) > 60 Est GFR (Non-Af Amer) > 60 POC Glucose (mg/dL) 231 H Random Glucose 208 H Hemoglobin A1c Calcium 8.7 Phosphorus 3.7 Magnesium 1.7 Total Bilirubin 0.4 AST 15 L ALT 13 L D Alkaline Phosphatase 88 Troponin I Total Protein 6.5 Albumin 3.4 L Globulin 3.1 Albumin/Globulin Ratio 1.1 Triglycerides Cholesterol LDL Cholesterol Direct HDL Cholesterol Blood Type Antibody Screen 04/13/18 11:13 WBC RBC Hgb Hct MCV MCH MCHC RDW Plt Count MPV Neut % (Auto) Lymph % (Auto) [place] % (Auto) Eos % (Auto) Baso % (Auto) Neut # (Auto) Lymph # (Auto) [place] # (Auto) Eos # (Auto) Baso # (Auto) PT INR APTT Sodium Potassium Chloride Carbon Dioxide Anion Gap BUN Creatinine Est GFR ( Amer) Est GFR (Non-Af Amer) POC Glucose (mg/dL) 164 H Random Glucose Hemoglobin A1c Calcium Phosphorus Magnesium Total Bilirubin AST ALT Alkaline Phosphatase Troponin I Total Protein Albumin Globulin Albumin/Globulin Ratio Triglycerides Cholesterol LDL Cholesterol Direct HDL Cholesterol Blood Type Antibody Screen Assessment & Plan - Assessment and Plan (Free Text) Assessment: 62 yr old male who has new/subacute stroke in right ICapsule, postitive on diffusion, negative on adc mapping, ischemic in nature. Plan: 1. echo 2. aspirin 325 mg po daily 3. pt st ot 4. IV fluids at 100 ccs normal saline. Thank you dr hopper
[2018-04-14] MEDS: Sodium Chloride 0.9% 1,000 ML IV SCH ×5 (02:38→22:10)
[2018-04-14 06:20] LABS: BASO # 0.1 K/uL (0.0-0.2); BASO % 0.7 % (0.0-2.0); EOS # 0.3 K/uL (0.0-0.7); EOS % 2.1 % (0.0-4.0); HEMOGLOBIN 12.8 g/dL (12.0-18.0); LYMPH # 4.4 K/uL (1.0-4.3); LYMPH % 29.5 % (20.0-40.0); MEAN CELL VOLUME 84.1 fL (80.0-94.0); MEAN CORPUSCULAR HEMOGLOBIN 27.9 pg (27.0-31.0); MEAN CORPUSCULAR HGB CONC 33.2 g/dL (33.0-37.0); MEAN PLATELET VOLUME 8.5 fL (7.2-11.7); MONO # 1.3 K/uL (0.0-0.8); MONO % 8.7 % (0.0-10.0); NEUT # 8.8 K/uL (1.8-7.0); NRBC % 0.1 % (0.0-2.0); RBC 4.6 Mil/uL (4.40-5.90); RED CELL DISTRIBUTION WIDTH 14.4 % (11.5-14.5); WHITE BLOOD COUNT 14.9 K/uL (4.8-10.8)
[2018-04-14 06:47] LABS: ALBUMIN 3.1 g/dL (3.5-5.0); ALT/SGPT 17 U/L (21-72); AST/SGOT 22 U/L (17-59); BLOOD UREA NITROGEN 11 mg/dL (9-20); CALCIUM 8.7 mg/dl (8.6-10.4); GFR AFRICAN-AMERICAN > 60; GFR NON-AFRICAN AMERICAN > 60
--- NOTE | 2018-04-14 06:58 | PCM.STROKE ---
Interval History Critical Care Time Spent (in minutes): 20 Stroke Date: 04/13/18 - Treatment DVT Prophylaxis: Lovenox Antiplatelet: Acetylsalicylic acid (ASA), Plavix Statin: Rosuvastatin - Education Written Stroke Education provided regarding: personal risk factors, stroke warning sign/symptoms, how to activate emergency medical services, need to follow up after discharge (for further monitoring and evaluation) Hx Atrial Fibrillation: No Hx Atrial Flutter: No NIHSS Stroke Scale - Date/Time Evaluation Performed Date Performed: 04/13/18 Time Performed: 21:30 - How Severe is the Stroke Level of Consciousness: 0=Alert LOC to Questions: 0=Both comments correct LOC to commands: 0=Obeys both correctly Best Gaze: 0=Normal Visual: 0=No visual loss Facial: 0=Normal Motor Arm - Left: 1=Drift noted before 10 sec Motor Arm - Right: 0=No drift Motor Leg - Left: 1=Drift before 5 sec Motor Leg - Right: 0=No drift Limb Ataxia: 0=Absent Sensory: 0=Normal Best Language: 0=No aphasia Dysarthia: 0=Normal articulation Extinction & Inattention (Neglect): 0=Normal, no object Score: 2 Exam - Vital Sign Vital Signs: Temp Pulse Resp BP Pulse Ox 99 F 64 16 121/63 100 04/14/18 00:00 04/14/18 04:00 04/14/18 04:00 04/14/18 04:00 04/14/18 04:00 Constitutional: No distress Right Pupil: Reactive Right Pupil Size (in mm): 2 Left Pupil: Reactive Left Pupil Size (in mm): 2 Cardiovascular: Regular rate & rhythm Mental Status: Normal: Orientation Cranial Nerve: Normal: Visual Dias, Extraocular movement intact, Facial Sensation, Facial Strength, Hearing, Shoulder Strength Neuro motor strength exam: Left Upper Extremity: 4, Right Upper Extremity: 5, Left Lower Extremity: 4, Right Lower Extremity: 5 Sensation: Intact to pin Coordination: Finger/nose - Data reviewed Laboratory results: 04/14/18 06:13 04/14/18 06:15 Triglycerides 132 mg/dL (0-149) 04/12/18 22:10 Cholesterol 194 mg/dL (0-199) 04/12/18 22:10 LDL Cholesterol Direct 150 mg/dL (0-129) H 04/12/18 22:10 HDL Cholesterol 25 mg/dL (30-70) L 04/12/18 22:10 Hemoglobin A1c 12.0 % (4.2-6.5) H 04/12/18 22:10 Echo: LV size, LV thickness, LV function EF, LV wall motion are normal. There is a mild tricuspid regurgitation. Assessment and Plan (1) Ischemic stroke Assessment & Plan: Case discussed with Dr. Alfaro, continue all current medical, physical, occupational, and speech therapies. Recommend blood pressure, glycemic control, and maintain head of bed elevated at least 30 degrees to maintain brain perfusion. Recommend to treat any underlying etiology for elevated WBC. Status: Acute
[2018-04-14] MEDS: (Novolin R) Insulin Human Regular 100 units/ml vial SC SCH ×4 (08:39→22:10)
[2018-04-14] MEDS: Enoxaparin 40 mg Syringe SC SCH (10:18)
[2018-04-14] MEDS: Pantoprazole 40 mg EC Tab PO SCH (10:19)
--- NOTE | 2018-04-14 11:25 | CP.PCM.PN ---
Addendum entered and electronically signed by Sherry Field DO 04/14/18 14:05 : Stroke identified via Neurology reading. Original Note: <Sherry Field - Last Filed: 04/14/18 11:18> Subjective - Date & Time of Evaluation Date of Evaluation: 04/14/18 Time of Evaluation: 08:00 - Subjective Subjective: Medicine Note for Hospitalist Service- Dr. Rivas Mejía Patient was seen and examined at bedside. Patient reports he feels great. Tolerating diet, ambulating well, full strength in upper and lower extremities. Denied fever, chills, headaches, loss of sensation, tingling in extremities, chest pain, shortness of breath, abdominal pain, n/v/d/c, or urinary symptoms. Objective - Vital Signs/Intake and Output Vital Signs (last 24 hours): Temp Pulse Resp BP Pulse Ox 97.8 F 82 19 134/76 100 04/14/18 08:24 04/14/18 10:20 04/14/18 10:20 04/14/18 10:20 04/14/18 10:20 Intake and Output: 04/14/18 04/14/18 06:59 18:59 Intake Total 1300 Output Total 700 Balance 600 - Medications Medications: Current Medications Aspirin (Aspirin Chewable) 81 mg PO DAILY [facility] Last Admin: 04/14/18 10:19 Dose: 81 mg Clopidogrel Bisulfate (Plavix) 75 mg PO DAILY [facility] Last Admin: 04/14/18 10:19 Dose: 75 mg Enoxaparin Sodium (Lovenox) 40 mg SC DAILY [facility] Last Admin: 04/14/18 10:18 Dose: 40 mg Glipizide (Glucotrol) 5 mg PO ACB [facility] Last Admin: 04/14/18 08:37 Dose: 5 mg Sodium Chloride (Sodium Chloride 0.9%) 1,000 mls @ 100 mls/hr IV .Q10H [facility] Last Admin: 04/14/18 07:25 Dose: Not Given Insulin Human Regular (Novolin R) 0 unit SC [facility] PRN Reason: Protocol Last Admin: 04/14/18 08:39 Dose: 2 unit Lisinopril (Zestril) 2.5 mg PO DAILY [facility] Last Admin: 04/14/18 10:19 Dose: 2.5 mg Pantoprazole Sodium (Protonix Ec Tab) 40 mg PO DAILY [facility] Last Admin: 04/14/18 10:19 Dose: 40 mg Rosuvastatin Calcium (Crestor) 20 mg PO HS [facility] Last Admin: 04/13/18 21:29 Dose: 20 mg - Labs Labs: 04/14/18 06:13 04/14/18 06:15 PT 11.9 SECONDS (9.7-12.2) 04/12/18 22:10 INR 1.1 04/12/18 22:10 APTT 34 SECONDS (21-34) 04/12/18 22:10 - Additional Findings Additional findings: - Constitutional Appears: Non-toxic, No Acute Distress - Head Exam Head Exam: ATRAUMATIC, NORMOCEPHALIC - Eye Exam Eye Exam: EOMI, Normal appearance, PERRL. absent: Nystagmus Pupil Exam: NORMAL ACCOMODATION, PERRL - ENT Exam ENT Exam: Mucous Membranes Moist, Normal Exam - Neck Exam Neck exam: Positive for: Normal Inspection - Respiratory Exam Respiratory Exam: Clear to Auscultation Bilateral. absent: Accessory Muscle Use , Rales, Rhonchi, Wheezes, Respiratory Distress - Cardiovascular Exam Cardiovascular Exam: REGULAR RHYTHM, +S1, +S2. absent: Diastolic murmur, Gallop , Rubs, Systolic Murmur - GI/Abdominal Exam GI & Abdominal Exam: Normal Bowel Sounds, Soft. absent: Distended, Firm, Guarding, Rigid, Tenderness - Extremities Exam Extremities exam: Negative for: pedal edema, tenderness - Neurological Exam Neurological exam: Alert, Motor Sensory Deficit, Oriented x3, Reflexes Normal Additional comments: L UE 5/5 strength. R UE 5/5 strength L LE and R LE strength 5/5 normal heel to chin B/L negative Babinski no facial weakness noted on exam, normal sensation normal gait rest of cranial nerves intact - Psychiatric Exam Psychiatric exam: Normal Affect, Normal Mood Assessment and Plan - Assessment and Plan (Free Text) Assessment: 62 year old male with past medical history of uncontrolled diabetes, HLD is admitted for possible CVA. CT scan of head done on admission showed infarct within right miles radiata age indeterminate. Further workup Head/ Neck CTA, Brain MRI, Head/ Neck MRA- negative for any acute pathology. Plan: Acute vs Subacute infarct in the Right Internal Capsule - Neurology consulted - Dr. Alfaro - ED physician spoke with neurologist, Dr. Alfaro who recommended giving pt Aspirin 325mg and Plavix Imaging: - Head CT: Age-indeterminate infarct within the right miles radiata, measuring up to 10 millimeters. Correlation with diffusion-weighted MRI would be helpful to better evaluate for acute ischemic change if clinically indicated. Chronic microvascular ischemic changes. - Head/ Neck CTA, Head/ Neck MRA- negative for any acute pathology. - Brain MRI: Acute vs Subacute infarct in the Right Internal Capsule area as seen on MRI. Management: - Aspirin 325mg and Plavix daily - Crestor 20mg PO QHS - PT/OT - recommend [facility]- however patient is self- pay; will receive PT in house and pending PT reccs if cane or walker is necessary Uncontrolled T2DM - Hgb A1c 12.0 - Accuchecks ACHS - ISS, hypoglycemix protocol, started Glipizide 5mg PO daily, (will resume Metformin on discharge), started lisinopril 2.5mg PO daily) - Will hold home medication metformin -due to contrast - will resume on discharge HLD - Lipid panel done in ED showed TG 132, Chold 194 LDL 150 HDL 25 - ASCVD score fo 35.2% risk of cardiovascular event - Started on Crestor 20 mg QHS Prophylaxis - GI: Protonix - DVT: SCDs, Lovenox - PT/ OT Disposition: PT recommendations, possible discharge tomorrow 04/15/18. DW Dr. Rivas Mejía, Sherry Field DO, PGY-1 <Rivas Mejía J - Last Filed: 04/14/18 19:39> Objective - Vital Signs/Intake and Output Vital Signs (last 24 hours): Temp Pulse Resp BP Pulse Ox 98.6 F 65 14 124/69 100 04/14/18 16:00 04/14/18 16:00 04/14/18 16:00 04/14/18 16:00 04/14/18 16:00 Intake and Output: 04/14/18 04/15/18 18:59 06:59 Intake Total 1300 Output Total 900 Balance 400 - Medications Medications: Current Medications Aspirin (Ecotrin) 325 mg PO DAILY [facility] Clopidogrel Bisulfate (Plavix) 75 mg PO DAILY [facility] Last Admin: 04/14/18 10:19 Dose: 75 mg Enoxaparin Sodium (Lovenox) 40 mg SC DAILY [facility] Last Admin: 04/14/18 10:18 Dose: 40 mg Glipizide (Glucotrol) 5 mg PO ACB [facility] Last Admin: 04/14/18 08:37 Dose: 5 mg Sodium Chloride (Sodium Chloride 0.9%) 1,000 mls @ 100 mls/hr IV .Q10H [facility] Last Admin: 04/14/18 17:35 Dose: Not Given Insulin Human Regular (Novolin R) 0 unit SC [facility] PRN Reason: Protocol Last Admin: 04/14/18 16:15 Dose: 4 unit Lisinopril (Zestril) 2.5 mg PO DAILY [facility] Last Admin: 04/14/18 10:19 Dose: 2.5 mg Pantoprazole Sodium (Protonix Ec Tab) 40 mg PO DAILY [facility] Last Admin: 04/14/18 10:19 Dose: 40 mg Rosuvastatin Calcium (Crestor) 20 mg PO HS [facility] Last Admin: 04/13/18 21:29 Dose: 20 mg - Labs Labs: 04/14/18 06:13 04/14/18 06:15 PT 11.9 SECONDS (9.7-12.2) 04/12/18 22:10 INR 1.1 04/12/18 22:10 APTT 34 SECONDS (21-34) 04/12/18 22:10 Attending/Attestation - Attestation I have personally seen and examined this patient.: Yes I have fully participated in the care of the patient.: Yes I have reviewed all pertinent clinical information, including history, physical exam and plan: Yes Notes (Text): 04/14/18 19:37 Patient was seen and examined at 5:30 PM in the ICU Bed 12 The care of this patient was discussed with resident prior to my exam during rounds. Patient will need to be cleared by PT prior to discharge as he does not qualify for [facility] or Home Care. Rivas Mejía D.O.
[2018-04-15 00:02] VITALS: RESP 20; O2SAT 97
[2018-04-15 07:30] LABS: BASO # 0.1 K/uL (0.0-0.2); BASO % 0.6 % (0.0-2.0); EOS # 0.3 K/uL (0.0-0.7); EOS % 2.2 % (0.0-4.0); HEMOGLOBIN 12.7 g/dL (12.0-18.0); LYMPH # 3.8 K/uL (1.0-4.3); LYMPH % 30.2 % (20.0-40.0); MEAN CELL VOLUME 83.6 fL (80.0-94.0); MEAN CORPUSCULAR HEMOGLOBIN 27.8 pg (27.0-31.0); MEAN CORPUSCULAR HGB CONC 33.2 g/dL (33.0-37.0); MEAN PLATELET VOLUME 8.8 fL (7.2-11.7); MONO # 1.2 K/uL (0.0-0.8); MONO % 9.3 % (0.0-10.0); NEUT # 7.3 K/uL (1.8-7.0); NEUT % 57.7 % (50.0-75.0); RBC 4.59 Mil/uL (4.40-5.90); RED CELL DISTRIBUTION WIDTH 14.5 % (11.5-14.5); WHITE BLOOD COUNT 12.6 K/uL (4.8-10.8)
--- NOTE | 2018-04-15 08:03 | CP.PCM.DIS ---
Provider - Provider Date of Admission: 04/12/18 23:27 Attending physician: Rivas Mejía MD Time Spent in preparation of Discharge (in minutes): 55 Hospital Course - Lab Results Lab Results: Micro Results 04/13/18 06:55 Naris MRSA Culture (Admit) - Final MRSA NOT DETECTED Most Recent Lab Values WBC 12.6 K/uL (4.8-10.8) H 04/15/18 07:33 RBC 4.59 Mil/uL (4.40-5.90) 04/15/18 07:33 Hgb 12.7 g/dL (12.0-18.0) 04/15/18 07:33 Hct 38.4 % (35.0-51.0) 04/15/18 07:33 MCV 83.6 fL (80.0-94.0) 04/15/18 07:33 MCH 27.8 pg (27.0-31.0) 04/15/18 07:33 MCHC 33.2 g/dL (33.0-37.0) 04/15/18 07:33 RDW 14.5 % (11.5-14.5) 04/15/18 07:33 Plt Count 400 K/uL (130-400) 04/15/18 07:33 MPV 8.8 fL (7.2-11.7) 04/15/18 07:33 Neut % (Auto) 57.7 % (50.0-75.0) 04/15/18 07:33 Lymph % (Auto) 30.2 % (20.0-40.0) 04/15/18 07:33 [place] % (Auto) 9.3 % (0.0-10.0) 04/15/18 07:33 Eos % (Auto) 2.2 % (0.0-4.0) 04/15/18 07:33 Baso % (Auto) 0.6 % (0.0-2.0) 04/15/18 07:33 Neut # (Auto) 7.3 K/uL (1.8-7.0) H 04/15/18 07:33 Lymph # (Auto) 3.8 K/uL (1.0-4.3) 04/15/18 07:33 [place] # (Auto) 1.2 K/uL (0.0-0.8) H 04/15/18 07:33 Eos # (Auto) 0.3 K/uL (0.0-0.7) 04/15/18 07:33 Baso # (Auto) 0.1 K/uL (0.0-0.2) 04/15/18 07:33 PT 11.9 SECONDS (9.7-12.2) 04/12/18 22:10 INR 1.1 04/12/18 22:10 APTT 34 SECONDS (21-34) 04/12/18 22:10 Sodium 141 mmol/L (132-148) 04/14/18 06:15 Potassium 4.1 mmol/L (3.6-5.2) 04/14/18 06:15 Chloride 108 mmol/L (98-107) H 04/14/18 06:15 Carbon Dioxide 24 mmol/L (22-30) 04/14/18 06:15 Anion Gap 14 (10-20) 04/14/18 06:15 BUN 11 mg/dL (9-20) 04/14/18 06:15 Creatinine 0.6 mg/dL (0.8-1.5) L 04/14/18 06:15 Est GFR ( Amer) > 60 04/14/18 06:15 Est GFR (Non-Af Amer) > 60 04/14/18 06:15 POC Glucose (mg/dL) 255 mg/dL (65-110) H 04/15/18 06:44 Random Glucose 157 mg/dL (75-110) H 04/14/18 06:15 Hemoglobin A1c 12.0 % (4.2-6.5) H 04/12/18 22:10 Calcium 8.7 mg/dl (8.6-10.4) 04/14/18 06:15 Phosphorus 3.7 mg/dL (2.5-4.5) 04/14/18 06:15 Magnesium 1.8 mg/dL (1.6-2.3) 04/14/18 06:15 Total Bilirubin 0.5 mg/dL (0.2-1.3) 04/14/18 06:15 AST 22 U/L (17-59) 04/14/18 06:15 ALT 17 U/L (21-72) L D 04/14/18 06:15 Alkaline Phosphatase 76 U/L (38-126) 04/14/18 06:15 Troponin I < 0.0120 ng/mL (0.00-0.120) 04/12/18 22:10 Total Protein 6.3 g/dL (6.3-8.3) 04/14/18 06:15 Albumin 3.1 g/dL (3.5-5.0) L 04/14/18 06:15 Globulin 3.1 gm/dL (2.2-3.9) 04/14/18 06:15 Albumin/Globulin Ratio 1.0 (1.0-2.1) 04/14/18 06:15 Triglycerides 132 mg/dL (0-149) 04/12/18 22:10 Cholesterol 194 mg/dL (0-199) 04/12/18 22:10 LDL Cholesterol Direct 150 mg/dL (0-129) H 04/12/18 22:10 HDL Cholesterol 25 mg/dL (30-70) L 04/12/18 22:10 Blood Type O POSITIVE 04/12/18 22:10 Antibody Screen Negative 04/12/18 22:10 - Hospital Course Hospital Course: Upon Admission: H&P: 62 year old male with past medical history of uncontrolled diabetes, HLD presented to hospital for left sided weakness. Left sided weakness began 2 nights ago (04/11/18) and worsened the next day. Weakness began in upper extremity and then gradually went to lower extremity. Patient denied having any changes in sensation in UE or LE B/L. Patient was ambulating without difficulty but does admit to having a difficult time getting in and out of chairs since yesterday. Patient denies having any facial weakness or numbness and denied having any changes in speech or swallowing. patient denied having any CARDOSO, vision or hearing changes. Denies having any recent illness or recent travels. denies having any similar symptoms in past. Pmhx: stated above Sx:denies Social: smokes 1/2 ppd x 40 years, denies ETOH or drug use Meds: Metformin 1000 mg po qd, Aspirin 81 mg po qd PMD: none NKDA Throughout Hospital Course: 62 year old male with past medical history of uncontrolled diabetes, HLD is admitted for possible CVA. CT scan of head done on admission showed infarct within right miles radiata age indeterminate. Further workup Head/ Neck CTA, Brain MRI, Head/ Neck MRA- negative for any acute pathology. Acute vs Subacute infarct in the Right Internal Capsule - Neurology consulted - Dr. Alfaro - ED physician spoke with neurologist, Dr. Alfaro who recommended giving pt Aspirin 325mg and Plavix Imaging: - Head CT: Age-indeterminate infarct within the right miles radiata, measuring up to 10 millimeters. Correlation with diffusion-weighted MRI would be helpful to better evaluate for acute ischemic change if clinically indicated. Chronic microvascular ischemic changes. - Head/ Neck CTA, Head/ Neck MRA- negative for any acute pathology. - Brain MRI: Acute vs Subacute infarct in the Right Internal Capsule area as seen on MRI - read and confirmed by Neurology. Management: - Aspirin 81mg and Plavix daily - Crestor 20mg PO QHS ----> will discharge with Lipitor 40mg - PT/OT - recommend [facility]- however patient is self- pay; will receive PT in house and pending PT reccs if cane or walker is necessary Uncontrolled T2DM - Hgb A1c 12.0 - Accuchecks ACHS - ISS, hypoglycemix protocol, started Glipizide 5mg PO daily, (will resume Metformin on discharge), started lisinopril 2.5mg PO daily) - Resume metformin and glipizide -due to contrast - will resume on discharge HLD - Lipid panel done in ED showed TG 132, Chold 194 LDL 150 HDL 25 - ASCVD score fo 35.2% risk of cardiovascular event - Started on Crestor 20 mg QHS - ECHO: LVEF 62% Please review EMR for full record, as this is a brief summary for the patient's hospital course. Discharge Exam - Additional Findings Additional findings: - Constitutional Appears: Non-toxic, No Acute Distress - Head Exam Head Exam: ATRAUMATIC, NORMOCEPHALIC - Eye Exam Eye Exam: EOMI, Normal appearance, PERRL. absent: Nystagmus Pupil Exam: NORMAL ACCOMODATION, PERRL - ENT Exam ENT Exam: Mucous Membranes Moist, Normal Exam - Neck Exam Neck exam: Positive for: Normal Inspection - Respiratory Exam Respiratory Exam: Clear to Auscultation Bilateral. absent: Accessory Muscle Use , Rales, Rhonchi, Wheezes, Respiratory Distress - Cardiovascular Exam Cardiovascular Exam: REGULAR RHYTHM, +S1, +S2. absent: Diastolic murmur, Gallop , Rubs, Systolic Murmur - GI/Abdominal Exam GI & Abdominal Exam: Normal Bowel Sounds, Soft. absent: Distended, Firm, Guarding, Rigid, Tenderness - Extremities Exam Extremities exam: Negative for: pedal edema, tenderness - Neurological Exam Neurological exam: Alert, Motor Sensory Deficit, Oriented x3, Reflexes Normal Additional comments: L UE 5/5 strength. R UE 5/5 strength L LE and R LE strength 5/5 normal heel to chin B/L negative Babinski no facial weakness noted on exam, normal sensation normal gait rest of cranial nerves intact - Psychiatric Exam Psychiatric exam: Normal Affect, Normal Mood Discharge Plan - Discharge Medications Prescriptions: Aspirin [Aspirin EC] 325 mg PO DAILY #30 tablet. Atorvastatin [Lipitor] 40 mg PO QPM #30 tab Clopidogrel [Plavix] 75 mg PO DAILY #30 tab GlipiZIDE [Glucotrol] 5 mg PO ACB #30 tab Lisinopril [Zestril] 2.5 mg PO DAILY #30 tab MetFORMIN [glucoPHAGE] 1,000 mg PO BID #60 tab - Follow Up Plan Condition: GOOD Disposition: HOME/ ROUTINE Additional Instructions: You will be taking the following medications: ASA 81mg by mouth daily (to prevent further strokes or risks for heart attacks) Plavix 75mg by mouth daily (to prevent further strokes or risks for heart attacks) Lipitor 40mg by mouth at night with dinner ((to prevent further strokes or risks for heart attacks) Lisinopril 2.5mg by mouth daily ( to protect your kidneys, since you are an uncontrolled diabetic) Metformin 1000mg by mouth twice a day (with breakfast and dinner) (for your diabetes) Glucotrol 5mg by mouth before breakfast (for your diabetes) Please follow up with either our [facility] in the basement at [facility] [phone] OR you can make an appointment with our [facility] [phone][place] [address] You will need to change your diet - low sugar intake, low carbohydrates (less rice and bread), exercise. Please DO NOT SMOKE ANYMORE. This puts you at risk of having ANOTHER STROKE or a heart attack. Please take care and be well. -- Tomars los siguientes medicamentos: ASA 81mg por va oral al da (para prevenir ms accidentes cerebrovasculares o riesgos de ataques cardacos) Plavix 75 mg por va oral al da (para prevenir ms accidentes cerebrovasculares o riesgos de ataques cardacos) Lipitor 40 mg por la boca por la noche con la robb ((para prevenir ms accidentes cerebrovasculares o riesgos de ataques al corazn) Lisinopril 2.5 mg por va oral al da (para proteger francie riones, ya que es un diabtico descontrolado) Metformina 1000 mg por va oral dos veces al da (con desayuno y furniture fabricator) (para haynes diabetes) Glucotrol 5mg por va oral antes del desayuno (para haynes diabetes) Por favor, siga con nuestra [facility] en el stano del [facility] [phone] O puede hacer krystina shanice con nuestra [facility] [place] [phone][place] [address] Tendr que cambiar haynes dieta: baja ingesta de azcar, bajos carbohidratos (menos arroz y manriquez), ejercicio. Por favor NO FUME MS. [place] lo pone en riesgo de tener OTRO ataque o un ataque al corazn. Por favor cudate y estate bhupendra. Referrals: [facility] at [facility] [Outside]
[2018-04-15] MEDS: (Novolin R) Insulin Human Regular 100 units/ml vial SC SCH ×2 (08:05→12:11)
[2018-04-15 08:24] LABS: ALT/SGPT 11 U/L (21-72); AST/SGOT 23 U/L (17-59); BLOOD UREA NITROGEN 11 mg/dL (9-20); CALCIUM 8.5 mg/dl (8.6-10.4); GFR AFRICAN-AMERICAN > 60; GFR NON-AFRICAN AMERICAN > 60
--- NOTE | 2018-04-15 08:27 | PCM.STROKE ---
Interval History Critical Care Time Spent (in minutes): 15 Stroke Date: 04/13/18 - Treatment DVT Prophylaxis: Lovenox (40 mg SC daily) Antiplatelet: Acetylsalicylic acid (ASA) (81 mg PO daily), Plavix (75 mg PO daily) Statin: Rosuvastatin (20 mg PO daily) - Education Written Stroke Education provided regarding: personal risk factors, stroke warning sign/symptoms, how to activate emergency medical services, need to follow up after discharge (with Dr. Eddy/ Dominic at [address] [place] [address] [place] [address]. Tel. [phone]) NIHSS Stroke Scale - Date/Time Evaluation Performed Date Performed: 04/13/18 Time Performed: 21:30 - How Severe is the Stroke Level of Consciousness: 0=Alert LOC to Questions: 0=Both comments correct LOC to commands: 0=Obeys both correctly Best Gaze: 0=Normal Visual: 0=No visual loss Facial: 0=Normal Motor Arm - Left: 0=No drift Motor Arm - Right: 0=No drift Motor Leg - Left: 0=No drift Motor Leg - Right: 0=No drift Limb Ataxia: 0=Absent Sensory: 0=Normal Best Language: 0=No aphasia Dysarthia: 0=Normal articulation Extinction & Inattention (Neglect): 0=Normal, no object Score: 0 Exam - Vital Sign Vital Signs: Temp Pulse Resp BP Pulse Ox 97.6 F 62 20 129/75 97 04/15/18 06:32 04/15/18 06:32 04/14/18 23:40 04/15/18 06:32 04/14/18 23:40 Vascular Risk: Diabetes Mellitus, Lipids - Data reviewed Laboratory results: 04/15/18 07:33 04/14/18 06:15 Triglycerides 132 mg/dL (0-149) 04/12/18 22:10 Cholesterol 194 mg/dL (0-199) 04/12/18 22:10 LDL Cholesterol Direct 150 mg/dL (0-129) H 04/12/18 22:10 HDL Cholesterol 25 mg/dL (30-70) L 04/12/18 22:10 Hemoglobin A1c 12.0 % (4.2-6.5) H 04/12/18 22:10 Assessment and Plan (1) Ischemic stroke Assessment & Plan: Case discussed with Dr. Alfaro, continue all current medical, physical, occupational, and speech therapies. Recommend changing aspirin from 325 mg PO daily to 81 mg PO daily and plavix 75 mg PO daily.Recommend to follow up with Dr Eddy/ Dominic at [address] [place] [address] [place] [phone] tel [phone]. Status: Acute
[2018-04-15 08:41] VITALS: BP 128/70; PULSE 58; TEMP 98.4
[2018-04-15] MEDS: Pantoprazole 40 mg EC Tab PO SCH (10:00)
[2018-04-15] MEDS: Sodium Chloride 0.9% 1,000 ML IV SCH ×2 (10:00)
[2018-04-15] MEDS: Enoxaparin 40 mg Syringe SC SCH (10:00)
[2018-04-15] MEDS ORDERED: Aspirin 325 mg EC Tablets PO SCH (10:00)
== END 2018-04-15 14:59 | disposition home or self-care (01) | DRG 66 ==
LOC: C.ER 21:23 → C.9E 23:27 → C.9I 04-13 01:59 → C.6T 04-14 17:48
PROVIDERS: ADMIT Family Medicine; ATTEND Family Medicine
DX: I63.9 Cerebral infarction, unspecified (principal); E11.9 Type 2 diabetes mellitus without complications; E78.5 Hyperlipidemia, unspecified; I25.10 Atherosclerotic heart disease of native coronary artery without angina pectoris; F17.210 Nicotine dependence, cigarettes, uncomplicated; E05.00 Thyrotoxicosis with diffuse goiter without thyrotoxic crisis or storm; Z79.02 Long term (current) use of antithrombotics/antiplatelets; Z79.82 Long term (current) use of aspirin; Z79.899 Other long term (current) drug therapy